=== PATIENT | male | born 1995 | race Two or more races ===

== ENCOUNTER 2020-03-04 11:56 | Emergency (ER) | payer OTHER ==
[~2020-03-04] VITALS: Ht 167.6 cm; Wt 70.8 kg
--- NOTE | 2020-03-04 11:56 | NUR ---
ED Nurse Note: patient brought into ED from street when he was sleeping in his car, BERTA was checking on patient if he was doing ok. patient reports at first he was dazed off because it was hot, however, he feels better now. patient denies using drug, denies any pain or discomfort. patient is alert awake x4 ambulatory breathing unlabored and even, speaking in full sentences.
--- NOTE | 2020-03-04 12:13 | Emergency Room Report ---
History of Present Illness General Chief Complaint: Generalized Weakness Source: Patient Present Illness HPI 24-year-old male, history of anxiety, recently kicked out of his parents house, patient reports that ever since then he has been anxious, currently denies any SI or HI, today he was found in his car crying, they found him to have a heart rate of 140, patient denies any SI HI, he states this is aggravated by his living conditions forced to live in his car no alleviating factors severity was moderate, constant, he denies any chest pain shortness of breath no leg swelling no nausea no vomiting patient states he felt better once he came into the hospital and had some air conditioning Allergies: Coded Allergies: No Known Allergies (Unverified , 05/16/15) COVID-19 Screening Contact w/high risk pt: No Experienced COVID-19 symptoms?: No COVID-19 Testing performed [employer]IAN: No Patient History Past Medical History: see triage record Reviewed Nursing Documentation: PMH: Agreed; PSxH: Agreed Review of Systems All Other Systems: negative except mentioned in HPI Physical Exam Vital Signs Date Time Temp Pulse Resp B/P (MAP) Pulse Ox O2 Delivery O2 Flow Rate FiO2 03/04/20 11:51 97.3 108 16 144/60 (88) 99 Room Air Sp02 EP Interpretation: reviewed, normal General Appearance: no apparent distress, alert Head: normocephalic, atraumatic Eyes: bilateral eye PERRL, bilateral eye EOMI ENT: uvula midline, moist mucus membranes Neck: supple, thyroid normal, supple/symm/no masses Respiratory: lungs clear, no respiratory distress, no retraction, no accessory muscle use Cardiovascular #1: normal peripheral pulses, no edema, no gallop, no murmur, tachycardia Gastrointestinal: non tender, soft, no guarding, no rebound Musculoskeletal: normal inspection Neurologic: alert, oriented x3 Psychiatric: anxious - Crying when speaking about his living situation Skin: no rash, warm/dry Medical Decision Making Diagnostic Impression: Primary Impression: Anxious reaction ER Course 24-year-old male presents with anxiousness Patient without any chest pain or shortness of breath no SI HI, patient most likely with palpitations after an episode Repeat EKG is normal sinus rhythm Strict return precautions were discussed patient states he wants to leave follow -up with PCP EKG Diagnostic Results EKG Time: 12:17 EP Interpretation: NSR, rate 88, QTc 428, no acute ST elevations, normal axis Last Vital Signs Date Time Temp Pulse Resp B/P (MAP) Pulse Ox O2 Delivery O2 Flow Rate FiO2 03/04/20 11:51 97.3 108 16 144/60 (88) 99 Room Air Disposition: HOME, SELF-CARE Condition: Stable Referrals: [facility] Patient Instructions: Generalized Anxiety Disorder, Palpitations, [id number] Additional Instructions: The patient was provided with discharge instructions, notified to follow-up with a primary care doctor and or specialist in the next 24-48 hours, and to return to the ED if they have worsening of their symptoms. Please note that this report is being documented using [employer] technology. This can lead to erroneous entry secondary to incorrect interpretation by the dictating instrument. Richard Moreno MD Mar 04, 2020 12:13
--- NOTE | 2020-03-04 12:20 | NUR ---
ED Nurse Note: ekg done at bedside. Dr. Moreno at bedside.
--- NOTE | 2020-03-04 12:26 | NUR ---
ED Nurse Note: cxr cancelled by Dr. Moreno.
[2020-03-04 12:31] VITALS: BP 141/79
--- NOTE | 2020-03-04 12:35 | NUR ---
ED Nurse Note: patient instructed to call [phone] to find out where he was picked up
--- NOTE | 2020-03-04 12:38 | NUR ---
ER DISCHARGE NOTE: Patient is cleared to be discharged per ERMCorky Moreno, pt is aox4, on room air, with stable vital signs. pt was given dc instructions, pt was able to verbalize understanding, pt id band removed without complications. pt is able to ambulate with steady gait. pt took all belongings. patient declined sandwiches and water. patient had his own gallon of water. patient reports he will go back to his car. patient is wearing weater appropriate clothing.
[2020-03-04 12:39] VITALS: BP 141/79
== END 2020-03-04 12:39 | disposition home or self-care (01) ==
LOC: EDBD 11:56 → EMR 12:24
DX: F41.9 Anxiety disorder, unspecified (principal)
CPT/HCPCS: 93005; 99283